=== PATIENT | female | born 1990 | race Caucasian/White ===

== ENCOUNTER 2018-07-26 22:49 | Emergency (ER) | payer OTHER | END 2018-07-26 23:49 | disposition home or self-care (01) | LOC: FER 22:49 ==

== ENCOUNTER 2021-02-05 12:46 | Emergency (ER) | payer OTHER ==
[2021-02-05 13:07] VITALS: BP 119/76; PULSE 81; TEMP 98.5; BMI 37.8
== END 2021-02-05 15:35 | disposition home or self-care (01) ==
LOC: FER 12:46
DX: M54.2 Cervicalgia (principal); S13.4XXA Sprain of ligaments of cervical spine, initial encounter; V89.2XXA Person injured in unspecified motor-vehicle accident, traffic, initial encounter; Y92.9 Unspecified place or not applicable
CPT/HCPCS: 72125-TC; 99284-25

== ENCOUNTER 2024-08-09 14:18 | Emergency (ER) | payer OTHER ==
[2024-08-09 14:37] VITALS: BP 133/72; PULSE 76; RESP 18; TEMP 98.2; BMI 35.9
[2024-08-09] MEDS ORDERED: MAG HYDROX/AL HYDROX/SIMETH 30 ML UNIT-DOSE CUP ONE (15:59)
[2024-08-09] MEDS: MAG HYDROX/AL HYDROX/SIMETH 30 ML UNIT-DOSE CUP PO ONE (16:00)
[2024-08-09 16:18] LABS: ABSOLUTE IMMATURE GRANULOCYTES 0.01 x10^3/uL (0.0-0.031); BASOPHILS # 0.04 x10^3/uL (0.01-0.08); EOSINOPHIL % 1.7 % (0.7-5.8); EOSINOPHILS # 0.14 x10^3/uL (0.04-0.36); HEMATOCRIT 40.4 % (34.1-44.9); HEMOGLOBIN 13.3 g/dL (11.2-15.7); MCHC 32.9 g/dl (32.2-35.5); MONOCYTE # 0.52 x10^3/uL (0.24-0.86); MONOCYTE % 6.4 % (4.7-12.5); PLATELET COUNT 230 x10^3/uL (182-369); RDW 13.4 % (12.1-16.8)
[2024-08-09 16:25] LABS: HCG,QUALITATIVE URINE Negative
[2024-08-09 16:39] LABS: ALBUMIN 4.4 g/dl (3.4-5.0); BILIRUBIN,TOTAL 0.8 mg/dl (0.2-1); CALCIUM 9.2 mg/dl (8.5-10.1); CREATININE 0.5 mg/dl (0.6-1.3); POTASSIUM 3.7 mmol/L (3.5-5.1); TOT PROT 7.1 g/dl (6.4-8.2)
== END 2024-08-09 18:11 | disposition home or self-care (01) ==
LOC: FER 14:18
DX: R10.13 Epigastric pain (principal); R10.33 Periumbilical pain; R11.0 Nausea; R35.0 Frequency of micturition; R14.0 Abdominal distension (gaseous)
CPT/HCPCS: 36415; 76705-TC; 80053; 81003; 83690; 84703; 85025; 99284-25